=== PATIENT | female | born 1990 | race Caucasian/White ===

== ENCOUNTER 2018-11-28 08:52 | Emergency (ER) | payer SELFPAY ==
[2018-11-28] MEDS: ONDANSETRON (ODT) 4 MG TAB ODT (09:27)
[2018-11-28] MEDS: ACETAMINOPHEN 500 MG TAB PO (09:27)
[2018-11-28 09:32] LABS: URINE PH (Dip) POC 8.5 (5.0-8.5)
[2018-11-28 09:32] LABS: URINE BLOOD (Dip) POC Negative (NEGATIVE); URINE GLUCOSE (Dip) POC Negative (NEGATIVE); URINE KETONES (Dip) POC Trace (NEGATIVE); URINE LEUKOCYTE EST (Dip) POC Negative (NEGATIVE); URINE NITRITE (Dip) POC Negative (NEGATIVE); URINE TOTAL PROTEIN POC 1+ (NEGATIVE)
== END 2018-11-28 09:50 | disposition home or self-care (01) ==
LOC: FTE 08:52
DX: O21.9 Vomiting of pregnancy, unspecified (principal); Z3A.00 Weeks of gestation of pregnancy not specified
CPT/HCPCS: 81003; 81025; 99283